=== PATIENT | male | born 1955 | race Caucasian/White ===

== ENCOUNTER 2020-11-28 03:58 | Emergency (ER) | payer MEDICARE, SELFPAY ==
[2020-11-28 04:05] VITALS: BP 136/98; PULSE 126; RESP 16; TEMP 36.6; O2SAT 93; BMI 31.4
--- NOTE | 2020-11-28 04:09 | W.ED.EPISTAX ---
HPI - Epistaxis General: Chief complaint: Epistaxis Stated complaint: nosebleed @ 1am, 2:50, and now Time Seen by Provider: 11/28/20 04:04 Source: patient Mode of arrival: ambulatory Limitations: no limitations History of Present Illness: HPI Narrative: 65-year-old male states he has had 3 separate nosebleeds tonight. He states he has been able to get them each to stop but the last one he has not been able to stop. He is on Coumadin. He denies any injuries. Denies any pain. Denies any worsening improving factors. MD complaint: epistaxis Location: left nostril Onset (ago): hour(s) Duration: intermittent Context: warfarin use Associated symptoms: Deny fever(s), headache(s) or vomiting Review of Systems Const: Denies: fever(s), chills, body aches or change in appetite Eyes: Denies: blurry vision or eye discomfort ENMT: Reports: epistaxis Card: Denies: chest pain Resp: Denies: dyspnea GI: Denies: abdominal pain, nausea, vomiting or diarrhea : Denies: dysuria Musc: Denies: neck pain or back pain Skin/Breast: Denies: rash Neuro: Denies: headache(s) Psych: Denies: depression Gorge/Lymph: Denies: easy bruising All/Imm: Denies: urticaria Physical Exam Const: COMMON NORMALS: no acute distress, patient oriented x3 and healthy appearing HENMT: COMMON NORMALS: normocephalic and atraumatic HEAD & SCALP: normocephalic and atraumatic OTHER: Epistaxis from left nare did have him blow his nose and he did evacuate a large clot Eye: COMMON NORMALS: Equal, round and reactive pupils present and EOMs intact bilaterally PUPIL: Yes Equal, round and reactive pupils present Neck/C-Spine: COMMON NORMALS: full ROM and supple Chest: COMMONS NORMALS: normal inspection of the chest and normal palpation of entire chest wall Resp: COMMON NORMALS: normal respiratory effort, No retractions, No use of accessory muscles and clear to auscultation bilaterally AUSCULTATION: clear to auscultation bilaterally Cardio: COMMON NORMALS: regular rate, regular rhythm and No murmurs present (Cardio) RATE: regular rate RHYTHM: regular rhythm GI: COMMON NORMALS: Normal to inspection, nondistended, normoactive bowel sounds present, Soft to palpation, non-tender and no masses PALPATION: Yes Soft to palpation Extremity: COMMON NORMALS: normal to inspection and full ROM Neuro: COMMON NORMALS: patient oriented x3, moves all extremities and no focal motor deficits Psych: COMMON NORMALS: mental status grossly normal, Normal thought process present and cooperative THOUGHT PROCESS: Normal thought process present Skin: COMMON NORMALS: no rashes or lesions noted and no wounds GENERAL SKIN EXAM: no rashes or lesions noted Course Vital Signs: Vital signs: Vital Signs Temperature 97.9 F 11/28/20 04:05 Pulse Rate 126 H 11/28/20 04:11 Respiratory Rate 18 11/28/20 04:11 Blood Pressure 136/98 11/28/20 04:11 Pulse Oximetry 93 11/28/20 04:11 MDM - Epistaxis MDM Narrative: Medical decision making narrative: Patient presents with left axis. Patient's nosebleed did stop here after I had him blow his nose to evacuate the clot and with pressure. His INR is not within range. He feels much improved and stable for discharge. He is to follow-up his PCP in 3 to 5 days and return to the ER if worsening. He understands and agrees to plan. Lab Data: Labs: Lab Results 11/28/20 11/28/20 Range/Units 04:25 04:36 WBC 8.2 (4.0-10.0) 10^3/ uL RBC 5.16 (4.1-5.3) 10^6/u L Hgb 15.6 (11.7-16.6) g/dL Hct 47.7 (42.0-52.0) % MCV 92.4 (80-94) fL MCH 30.2 (28.0-34.0) pg MCHC 32.7 (30.0-36.0) g/dL RDW 13.1 (12.1-15.1) % Plt Count 149 (130-400) 10^3/c mm MPV 11.2 H (7.4-10.4) fL Neut % (Auto) 57.3 % Lymph % (Auto) 32.6 % [place] % (Auto) 7.5 % Eos % (Auto) 2.0 % Baso % (Auto) 0.5 % Neut # (Auto) 4.67 (1.8-7.7) 10^3/u L Lymph # (Auto) 2.7 (0.8-4.8) 10^3/u L [place] # (Auto) 0.6 (0.2-0.9) 10^3/u L Eos # (Auto) 0.2 (0.0-0.8) 10^3/u L Baso # (Auto) 0.0 (0.0-0.1) 10^3/u L Nucleated RBC % (a uto) 0 % Nucleated RBCs # 0.0 /100WBC PT 29.40 H (12.1-14.9) SECO NDS INR 2.66 H (0.8-1.2) Discharge Plan Discharge Patient Disposition: Home Clinical Impression: Epistaxis Condition: Stable Discharge Orders: Discharge ED (Routine); Ordered 11/28/20 Ordered By: Aravind Allen Referrals: Horacio Garcia MD [Primary Care Provider] - 1-3 days Discharge Diet: Advance as tolerated Discharge Activity: Resume usual activity Patient Instructions: Epistaxis (ED) Coding Level of Care Code ED Water Purifier Operator for Chg Fwd Exam Comprehensive
[2020-11-28 04:11] VITALS: BP 136/98; PULSE 126; RESP 18; O2SAT 93
[2020-11-28 04:44] LABS: INR 2.66 (0.8-1.2)
[2020-11-28 04:59] LABS: Basophils % 0.5 %; Eosinophils # 0.2 10^3/uL (0.0-0.8); Hematocrit 47.7 % (42.0-52.0); Hemoglobin 15.6 g/dL (11.7-16.6); Lymphocytes # 2.7 10^3/uL (0.8-4.8); Lymphocytes % 32.6 %; Mean Corpuscular HGB Conc 32.7 g/dL (30.0-36.0); Mean Corpuscular Hemoglobin 30.2 pg (28.0-34.0); Mean Corpuscular Volume 92.4 fL (80-94); Mean Platelet Volume 11.2 fL (7.4-10.4); Monocytes # 0.6 10^3/uL (0.2-0.9); Monocytes % 7.5 %; Neutrophils # 4.67 10^3/uL (1.8-7.7); Neutrophils % 57.3 %; Nucleated Red Blood Cells % 0 %; Platelet Count 149 10^3/cmm (130-400); Red Blood Count 5.16 10^6/uL (4.1-5.3); Red Cell Distribution Width 13.1 % (12.1-15.1); White Blood Count 8.2 10^3/uL (4.0-10.0)
[2020-11-28] MEDS: oxymetazoline 0.05% Nasal Spray 15 mL 2 SPRAY NOSTRIL-B (04:59)
[2020-11-28 05:18] VITALS: BP 99/65; PULSE 78; RESP 16; O2SAT 100
[2020-11-28 05:35] VITALS: BP 105/78; PULSE 94; RESP 16; O2SAT 94
--- NOTE | 2020-11-28 05:42 | PC.NURSE ---
Pt nose bleeding started prior to leaving. Pt returned to room. Dr Allen alerted. Rhino Rocket placed. Pt being observed at this time.
--- NOTE | 2020-11-28 06:24 | PC.NURSE ---
No further bleeding noted. Pt left ER ambulatory at this time in stable condition.
--- NOTE | 2020-11-28 09:49 | DCPLANNER ---
product support manager had message to schedule a follow up appointment for patient with Dr. Garvin ENT. Patient came back to the ER, seen by another provider. product support manager was asked to call general surgery to see if patient could possibly be seen today in the office with Dr. Nam. product support manager had ER physician, Dr. Suresh speak with Dr. Nam. Patient was sent to [facility]illo with [facility]. Patient did go to the ENT office and was seen.
== END 2020-11-28 06:25 | disposition home or self-care (01) ==
PROVIDERS: Emergency Provider Emergency Medicine; PCP Family Medicine
DX: R04.0 Epistaxis (principal); Z79.01 Long term (current) use of anticoagulants; Z87.891 Personal history of nicotine dependence
CPT/HCPCS: 12345; 85025; 85610; 99281; 99282

== ENCOUNTER 2020-11-28 07:45 | Emergency (ER) | payer MEDICARE, SELFPAY ==
[2020-11-28 07:45] VITALS: BP 129/82; PULSE 128; RESP 18; TEMP 36.4; O2SAT 92; BMI 31.4
--- NOTE | 2020-11-28 08:30 | W.ED.EPISTAX ---
HPI - Epistaxis General: Chief complaint: Epistaxis Stated complaint: nose bleed Time Seen by Provider: 11/28/20 07:47 History of Present Illness: HPI Narrative: 65-year-old male returns the emergency room after being here just an hour ago for epistaxis his right nare was not bleeding at the time after he left about 40 minutes later his right nare began to bleed heavily. He had seen Dr. Allen earlier and then placed a Rhino Rocket in the left he had good control the bleeding and seems to be completely resolved until after he left. He is on Coumadin for DVT and his INR earlier today was 2.6 his hemoglobin was good. On my arrival in the room he is actively bleeding from the right nare, there is a Rhino Rocket in place on the left. MD complaint: epistaxis Location: right nostril Onset (ago): minute(s) Duration: constant Context: history of previous and warfarin use Associated symptoms: Reports sinus pain; Deny fever(s), headache(s), syncope, vomiting or weakness Treatment prior to arrival: nose pinching and head tilted back Review of Systems Const: Denies: fever(s) ENMT: Reports: sinus pain Card: Denies: syncope GI: Denies: vomiting Neuro: Denies: headache(s) PFSH ED PFSH: Social History Smoking and tobacco status: former smoker Second hand smoke exposure: No Alcohol intake: current Alcohol intake frequency: holidays/special occasions only Alcohol type: beer Desire information about alcohol rehabilitation?: No Adopted: No Caregiver/support person: Yes Lives independently: Yes Household members: spouse Housing: House Marital status: service: No History of recent travel: Yes Special sivan needs: No Physical Exam Const: COMMON NORMALS: no acute distress GENERAL APPEARANCE: cooperative and comfortable ORIENTATION/CONSCIOUSNESS: Yes awake, Yes oriented to person, Yes oriented to place and Yes oriented to time HENMT: COMMON NORMALS: normocephalic and atraumatic HEAD & SCALP: normocephalic and atraumatic OTHER: rhinorocket in the L nare. THe r nare has active bleeding. Neck/C-Spine: COMMON NORMALS: no JVD Resp: COMMON NORMALS: normal respiratory effort, No retractions, No use of accessory muscles and clear to auscultation bilaterally AUSCULTATION: clear to auscultation bilaterally Cardio: COMMON NORMALS: no JVD, regular rate, regular rhythm and No murmurs present (Cardio) RATE: regular rate RHYTHM: regular rhythm GI: COMMON NORMALS: Soft to palpation and No hepatosplenomegaly present AUSCULTATION: Yes normoactive bowel sounds PALPATION: Yes Soft to palpation, No Tenderness to palpation present (GI), No Guarding due to palpation present (GI) and Yes No hepatosplenomegaly present Extremity: COMMON NORMALS: normal to inspection, capillary refill normal, no clubbing, cyanosis or edema, no calf tenderness and no pedal edema Neuro: SENSORIUM/ORIENTATION: Yes oriented to person, Yes oriented to place and Yes oriented to time Skin: COMMON NORMALS: no rashes or lesions noted GENERAL SKIN EXAM: no rashes or lesions noted Procedures Epistaxis Control Time Out Performed: Yes Nostril: right Nose Prepped With: oxymetazoline Direct Inspection: unable to visualize Clots Removed by: blowing nose Cautery Used: none Device Inserted: hemostatic balloon Patient Tolerated Procedure: well Course Vital Signs: Vital signs: Vital Signs Temperature 97.6 F 11/28/20 07:45 Pulse Rate 82 11/28/20 08:51 Respiratory Rate 18 11/28/20 08:51 Blood Pressure 132/68 11/28/20 08:51 Pulse Oximetry 99 11/28/20 08:51 MDM - Epistaxis MDM Narrative: Medical decision making narrative: Pt tolerated well epistaxis controlled. Discussed with nay Nam to proceed directly to his office. Discharge Plan Discharge Patient Disposition: Home Clinical Impression: Epistaxis Condition: Stable Prescriptions: No Action warfarin 5 mg tablet 5 mg PO .fri and RF: 0 warfarin 10 mg tablet 10 mg PO .every other day RF: 0 Algal Bradley-3 DHA 200 mg capsule 300 mg PO DAILY RF: 0 saw palmetto 450 mg capsule 450 mg PO DAILY RF: 0 glucosamine-chondroitin 900 mg tablet 1,500 mg PO DAILY RF: 0 acetaminophen 500 mg capsule 500 mg PO Q6H PRNRF: 0 Keflex 500 mg capsule 500 mg PO TID Qty: 9 RF: 0 Discharge Orders: Discharge ED (Routine); Ordered 11/28/20 Ordered By: Emile Suresh Referrals: Ernesto Nam MD [Physician] - Discharge Diet: Usual diet Discharge Activity: Increase activity as tolerated Activity Restrictions/Additional Instructions: After being discharged from the emergency room proceed directly to Dr. Nam's office in [facility]. Coding Level of Care Code ED Sign Painter Helper for Shelby Mooney
[2020-11-28 08:51] VITALS: BP 132/68; PULSE 82; RESP 18; O2SAT 99
== END 2020-11-28 08:56 | disposition home or self-care (01) ==
PROVIDERS: Emergency Provider Family Medicine; PCP Family Medicine
DX: R04.0 Epistaxis (principal); Z79.01 Long term (current) use of anticoagulants; Z87.891 Personal history of nicotine dependence
CPT/HCPCS: 12345; 99281

== ENCOUNTER 2021-09-07 11:23 | Outpatient (CLI) | payer MEDICARE, SELFPAY ==
[2021-09-07 07:27] VITALS: BP 120/82; PULSE 80; RESP 18; TEMP 36.6; O2SAT 94
[2021-09-07 11:33] VITALS: BP 139/89; PULSE 93; RESP 18; TEMP 36.7; O2SAT 95; BMI 31.4
[2021-09-07 13:05] VITALS: BP 120/82; PULSE 82; RESP 18; TEMP 36.7; O2SAT 97
== END 2021-09-07 11:24 | disposition home or self-care (01) ==
PROVIDERS: PCP Family Medicine; Visit Provider Nurse Practitioner
DX: U07.1 COVID-19 (principal)
CPT/HCPCS: 96365

== ENCOUNTER → 2023-06-09 12:50 | Outpatient (BNVA) | payer MEDICARE, SELFPAY | PROVIDERS: PCP Family Medicine; Visit Provider Podiatrist Foot & Ankle Surgery | DX: M67.472 Ganglion, left ankle and foot (principal); M20.41 Other hammer toe(s) (acquired), right foot; M20.42 Other hammer toe(s) (acquired), left foot | CPT/HCPCS: 99203 ==

== ENCOUNTER → 2024-10-28 13:23 | Outpatient (BNVA) | payer MEDICARE, SELFPAY | PROVIDERS: PCP Family Medicine; Referring Provider Family Medicine; Visit Provider Specialist | DX: M79.661 Pain in right lower leg (principal); M79.662 Pain in left lower leg; M79.18 Myalgia, other site; R20.0 Anesthesia of skin; R20.2 Paresthesia of skin; G62.89 Other specified polyneuropathies | CPT/HCPCS: 95910 ==

== ENCOUNTER → 2025-03-08 09:14 | Outpatient (BNVA) | payer MEDICARE, SELFPAY | PROVIDERS: PCP Family Medicine; Referring Provider Family Medicine; Visit Provider Psychiatry & Neurology Neurology | DX: G62.89 Other specified polyneuropathies (principal); E55.9 Vitamin D deficiency, unspecified; R41.3 Other amnesia; R79.9 Abnormal finding of blood chemistry, unspecified; I73.9 Peripheral vascular disease, unspecified; G60.8 Other hereditary and idiopathic neuropathies; R68.89 Other general symptoms and signs | CPT/HCPCS: 82306; 83036; 84155; 84165; 84425; 84439; 84443; 84481; 84591; 86038; 86334; 86431; 86592; 99203 ==

== ENCOUNTER → 2025-03-18 09:39 | Outpatient (BNVA) | payer MEDICARE, SELFPAY | PROVIDERS: PCP Family Medicine; Visit Provider Internal Medicine | DX: I73.9 Peripheral vascular disease, unspecified (principal); Z79.01 Long term (current) use of anticoagulants; Z87.891 Personal history of nicotine dependence; Z86.718 Personal history of other venous thrombosis and embolism; R07.9 Chest pain, unspecified | CPT/HCPCS: 93005; 99204 ==

== ENCOUNTER 2025-04-01 13:54 | Outpatient (CLI) | payer MEDICARE, SELFPAY ==
--- NOTE | 2025-04-01 14:30 | USR_ITS ---
PROCEDURE INFORMATION: Exam: US Duplex Bilateral Lower Extremity Arteries Exam date and time: 04/01/2025 2:16 PM Age: 70 years old Clinical indication: Pain; Leg, lower; Bilateral; Additional info: Bilateral leg pain TECHNIQUE: Imaging protocol: Real-time ultrasound scan of the arteries of the bilateral lower extremities with 2-D christianson scale, color Doppler flow and spectral waveform analysis. Images documented and saved. COMPARISON: No relevant prior studies available. FINDINGS: Right common femoral artery: No occlusion or significant stenosis. Normal waveform. Right superficial femoral artery: No occlusion or significant stenosis. Normal waveform. Right popliteal artery: No occlusion or significant stenosis. Normal waveform. Right calf/foot arteries: No occlusion or significant stenosis in the visualized arteries. Normal waveforms. Dorsalis pedis artery is patent. Left common femoral artery: No occlusion or significant stenosis. Normal waveform. Left superficial femoral artery: No occlusion or significant stenosis. Normal waveform. Left popliteal artery: No occlusion or significant stenosis. Normal waveform. Left calf/foot arteries: No occlusion or significant stenosis in the visualized arteries. Normal waveforms. Dorsalis pedis artery is patent. US/CV arterial duplex [facility] [id number] IMPRESSION: No stenosis or occlusion.
== END 2025-04-01 13:55 | disposition home or self-care (01) ==
LOC: RAD 13:55
PROVIDERS: PCP Family Medicine; Visit Provider Internal Medicine
DX: M79.604 Pain in right leg (principal); M79.605 Pain in left leg
CPT/HCPCS: 93925